=== PATIENT | female | born 1945 | race Caucasian/White ===

== ENCOUNTER 2017-03-12 14:37 | Emergency (ER) | payer MEDICARE ==
[~2017-03-12] VITALS: Ht 162.6 cm; Wt 86.0 kg
[~2017-03-12 14:37] MED LIST: ADLT ASA LOW81 MG OR; AMARYL4 MG OR; ATENOLOL50 MG OR; CALCIUM600 M2 OR; CELEBREX100 M1 OR; CENTRUM OR; CIPRO500 MG OR; FENOFIBRATE160 MG OR; HYDROCHLOROT25 MG OR; LISINOPRIL20 MG OR; PREVACID30 M1 OR; STOOL SOFTNR100 MG OR
[2017-03-12] MEDS ORDERED: AMLODIPINE5 MG PO (14:51)
[2017-03-12] MEDS ORDERED: HYDROCHLOROT25 MG PO (14:52)
[2017-03-12] MEDS ORDERED: LEVOTHYROXIN50 MCG PO (14:52)
[2017-03-12] MEDS ORDERED: LOSARTAN POT50 MG PO (14:53)
[2017-03-12 15:29] LABS: URINE BILIRUBIN - DIPSTICK NEGATIVE (NEGATIVE); URINE BLOOD DIPSTICK NEGATIVE (NEGATIVE); URINE COLOR YELLOW; URINE GLUCOSE - DIPSTICK NEGATIVE (NEGATIVE); URINE KETONE NEGATIVE (NEGATIVE); URINE NITRITE - DIPSTICK NEGATIVE (Negative); URINE PH 5.5 (4.5-8.0); URINE PROTEIN - DIPSTICK NEGATIVE (NEG-TRACE); URINE UROBILINOGEN - DIPSTICK 0.2 E.U./dL (0.2)
[2017-03-12 15:30] LABS: IMMATURE GRANULOCYTES 0.3 % (0.0-1.0); MEAN CELL VOLUME 84.1 fL CALC (80.0-100.0); MEAN CORPUSCULAR HGB 29.5 pG CALC (26.0-32.0); MEAN CORPUSCULAR HGB CONC 35.1 g/L CALC (32.0-36.0); NEUT# 7.87 thou/uL (2.00-7.15); RED BLOOD COUNT 4.4 mill/uL (4.20-5.60); RED CELL DISTRI WIDTH 12.4 % (11.5-15.5)
[2017-03-12 15:38] LABS: URINE CLARITY CLEAR; URINE LEUK ESTERASE SMALL (NEGATIVE)
[2017-03-12 15:46] LABS: ALBUMIN 4.5 g/dL (3.2-5.0); ALKALINE PHOSPHATASE 64 u/l (38-126); AMYLASE 82 u/l (30-110); ANION GAP 16 (6-22 (CALC)); BILIRUBIN, TOTAL 0.7 mg/dL (0.0-1.4); BUN 27 mg/dL (8-23); BUN/CREATININE RATIO 21 (12-20 (CALC)); CALCIUM 10.5 mg/dL (8.4-10.2); CARBON DIOXIDE 20 mmol/l (22-30); CHLORIDE 108 mmol/l (95-108); CREATININE 1.3 mg/dL (0.5-1.0); GFR 40 ML/MIN (>=60 (CALC)); GFR FOR AFR.AMER. 49 ML/MIN (>=60 (CALC)); GLUCOSE 140 mg/dL (82-115); LIPASE 270 u/l (23-300); POTASSIUM 4.3 mmol/l (3.5-5.1); SGOT/AST 151 u/l (9-36); SGPT/ALT 86 u/l (11-66); SODIUM 140 mmol/l (137-146); TOTAL PROTEIN 7.3 g/dL (6.3-8.2)
[2017-03-12 15:48] LABS: URINE BACTERIA MANY hpf; URINE SQUAMOUS EPITHELIAL CELL FEW EPI/hpf (0-FEW)
[2017-03-12 15:57] LABS: MYOGLOBIN 53 ng/mL (0 - 62)
[2017-03-12] MEDS ORDERED: NORCO1 TA1 PO (18:46)
[2017-03-12] MEDS ORDERED: CIPROFLOXACIN250 MG PO (18:46)
[2017-03-12 19:04] VITALS: BP 154/67
== END 2017-03-12 19:04 | disposition home or self-care (01) ==
LOC: ED 14:37
PROVIDERS: Emergency Medicine
DX: K80.20 Calculus of gallbladder without cholecystitis without obstruction (principal); N39.0 Urinary tract infection, site not specified; B96.20 Unspecified Escherichia coli [E. coli] as the cause of diseases classified elsewhere; R94.31 Abnormal electrocardiogram [ECG] [EKG]; I10 Essential (primary) hypertension; I49.9 Cardiac arrhythmia, unspecified; Z79.82 Long term (current) use of aspirin